=== PATIENT | female | born 1995 | race Caucasian/White ===

== ENCOUNTER 2022-02-22 19:44 | Emergency (ER) | payer OTHER ==
[~2022-02-22] VITALS: Ht 154.9 cm; Wt 49.9 kg
[2022-02-22] MEDS ORDERED: ZITHROMAX200 MG PO (21:43)
== END 2022-02-22 22:29 | disposition home or self-care (01) ==
LOC: ER 19:44
DX: U07.1 COVID-19 (principal); A49.3 Mycoplasma infection, unspecified site